=== PATIENT | female | born 1940 | race Caucasian/White ===

== ENCOUNTER → 2017-01-18 | Outpatient (CLI) | payer MEDICARE, BC ==
[~2017-01-18] MED LIST: BUPIVACAINE MPF 0.5% 30 ML VIAL. ONE; LIDOCAINE 1% PF 30 ML VIAL. ONE; methylPREDNISolone ACETATE 40 MG/ML VIAL. ONE
== END | disposition home or self-care (01) ==
LOC: SURG 08:34
PROVIDERS: ATTEND Anesthesiology Pain Medicine
DX: M47.812 Spondylosis without myelopathy or radiculopathy, cervical region (principal); M19.90 Unspecified osteoarthritis, unspecified site; E07.9 Disorder of thyroid, unspecified
CPT/HCPCS: 64490; 64491; J1030; J2001; J3490; 64492

== ENCOUNTER 2017-04-20 19:02 | Inpatient (IN) | payer MEDICARE, BC ==
[~2017-04-20] VITALS: Ht 165.1 cm; Wt 82.2 kg
[2017-04-20 20:32] VITALS: BP 147/72
[2017-04-20] MEDS ORDERED: LEVO175T5 PO (20:36)
--- NOTE | 2017-04-20 20:40 | NUR ---
Admit: Pt arrived A&Ox4 in bed, pt transferred herself into bed with standby assistance, VSS, assessment complete, pt denies any pain 0/10, home meds verified, belongings accounted for, pt's brother at bedside, call light within reach, no complaints
[2017-04-20] MEDS ORDERED: ESOM40CA PO (20:51)
[2017-04-20] MEDS ORDERED: AMLO1CAP8 PO (20:51)
[2017-04-20] MEDS ORDERED: ATOR40TA59 PO (20:57)
[2017-04-20] MEDS ORDERED: BUPR300T4 PO (20:57)
[2017-04-20] MEDS ORDERED: BUPR-192 PO (20:57)
[2017-04-20] MEDS ORDERED: CHLO25TA PO (20:57)
[2017-04-20] MEDS ORDERED: ASPI-612 PO (20:58)
[2017-04-20] MEDS ORDERED: EZET10TA18 PO (20:58)
[2017-04-20] MEDS ORDERED: DOCU-109 PO (21:04)
[2017-04-20] MEDS ORDERED: VORT20TA PO (21:04)
[2017-04-20] MEDS ORDERED: ALPR0.5T6 PO (21:04)
[2017-04-20] MEDS ORDERED: ZOLPIDEM 5 MG TABLET. PO PRN (22:15)
[2017-04-20] MEDS ORDERED: ACETAMINOPHEN 325 MG TABLET PO PRN (22:30)
[2017-04-20] MEDS ORDERED: ATORVASTATIN CALCIUM 20 MG TABLET PO SCH (22:30)
[2017-04-20] MEDS ORDERED: EZETIMIBE 10 MG TABLET PO SCH (22:30)
[2017-04-20] MEDS ORDERED: ASPIRIN ENTERIC COATED 81 MG TABLET.DR. PO SCH (22:30)
[2017-04-20] MEDS ORDERED: DOCUSATE SODIUM 100 MG CAPSULE PO SCH (22:30)
--- NOTE | 2017-04-20 22:30 | NUR ---
Pt is calm and cooperative, pt denies pain and has been asymptomatic, pt is primary caregiver to her brother Rishi who is Rishi VIVAR will stay bedside with pt tonight, pt stated that she takes one 81mg Aspirin daily at home but larger doses of aspirin causes pt to have problems with her throat- possibly swelling, Dr. Daly notifed, Pt given Eliquis for VTE, Pt's home meds verified and continued, pt's EKG shows left BBB EKG, pt stated that she has had Left BBB in the past, Pt requested and was given sandPatients Know Bestich boxes, pt advised to call for assistance before getting up, pt resting in bed at this time, call light within reach, will CTM this pt
[2017-04-20 22:46] LABS: CALCIUM 8.9 mg/dL (8.5-10.1); CREATININE 1.1 mg/dL (0.6-1.0); GFR 48.6
[2017-04-20] MEDS: ALPRAZolam 0.5 MG TABLET PO SCH (22:49)
[2017-04-20] MEDS: APIXABAN 2.5 MG TABLET PO SCH (22:49)
[2017-04-20 22:55] VITALS: BP 137/62
[2017-04-20 23:08] LABS: POTASSIUM 2.9 mmol/L (3.5-5.1)
[2017-04-21] MEDS ORDERED: POTASSIUM CHLORIDE 20 MEQ TABLET.ER. PO ONE (00:30)
[2017-04-21 06:00] VITALS: BP 131/70
[2017-04-21 06:45] LABS: BASO # 0.1 x10^3/uL (0.0-0.2); BASO % 1 % (0-3); EOS # 0.4 x10^3/uL (0.0-0.7); EOS % 4 % (0-3); HEMATOCRIT 40.2 % (36.0-47.0); HEMOGLOBIN 13.7 g/dL (12.0-15.5); LYMPH # 4.2 x10^3/uL (1.0-4.8); LYMPH % 47 % (24-48); MEAN CORPUSCULAR HEMOGLOBIN 28 pg (25-35); MEAN CORPUSCULAR HGB CONC 34 g/dL (31-37); MEAN CORPUSCULAR VOLUME 82 fL (79-100); MONO # 0.5 x10^3/uL (0.0-1.1); MONO % 6 % (0-9); NEUT # 3.7 x10^3uL (1.8-7.7); NEUT % 42 % (31-73); PLATELET COUNT 307 x10^3/uL (140-400); RED BLOOD COUNT 4.93 x10^6/uL (3.50-5.40); RED CELL DISTRIBUTION WIDTH 13.3 % (11.5-14.5); WHITE BLOOD COUNT 8.8 x10^3/uL (4.0-11.0)
[2017-04-21 06:54] LABS: CALCIUM 9.1 mg/dL (8.5-10.1); CREATININE 1.1 mg/dL (0.6-1.0); GFR 48.6; POTASSIUM 3.4 mmol/L (3.5-5.1)
[2017-04-21] MEDS ORDERED: LEVOTHYROXINE 175 MCG TABLET PO SCH (07:00)
[2017-04-21] MEDS ORDERED: buPROPion XL 300 MG TAB.ER.24H. PO SCH (08:00)
[2017-04-21] MEDS ORDERED: buPROPion XL 150 MG TAB.ER.24H PO SCH (08:00)
[2017-04-21] MEDS: POTASSIUM CHLORIDE 20 MEQ TABLET.ER. PO SCH ×2 (08:14→17:00)
[2017-04-21] MEDS: ALPRAZolam 0.5 MG TABLET PO SCH (08:17)
[2017-04-21] MEDS: APIXABAN 2.5 MG TABLET PO SCH (08:17)
--- NOTE | 2017-04-21 08:46 | NUR ---
G NOTE; DR GONZALEZ CONSULT CALLED TO [facility] AT [id number]
[2017-04-21] MEDS ORDERED: LISINOPRIL 10 MG TABLET PO SCH (09:00)
[2017-04-21] MEDS ORDERED: amLODIPine BESYLATE 5 MG TABLET PO SCH (09:00)
[2017-04-21] MEDS ORDERED: CHLORTHALIDONE 25 MG TABLET PO SCH (09:00)
[2017-04-21] MEDS ORDERED: PANTOPRAZOLE 40 MG TABLET. PO SCH (09:00)
--- NOTE | 2017-04-21 09:49 | PDOC2 ---
TIERNEY BELTRAN FASHION DIRECTOR PARTY PLAN SALES 04/21/17 0949: CONSULT Date of Admission DATE: 04/21/17 TIME: 09:48 Reason for Consult: chest pain History of Present Illness Ms Lehman is a 76 year old female who initially presented to [facility] with complaints of chest pain. It was determined that she should be admitted for evaluation but as there were no beds she was transferred here for admission. She reports occasional feelings of pressure in her midsternal to epigastric area which are relieved with belching. She does state that the symptoms are most often worse with exertion and improved if she lays down. Yesterday she experienced the discomfort all day without relief, with associated nausea, diarrhea and diaphoresis so presented for evaluation. She denies dyspnea or congestive symptoms. She denies palpitations, lightheadedness or syncope. She reports that the discomfort is currently ongoing but mild and is requesting a GI cocktail. Past Medical History hypertension, hyperlipidemia, GERD, mitral regurgitation, cardiomyopathy, Left bundle branch block, hypothyroidism, arthritis, anxiety, depression MPI 10/23/14 anterolateral apical breast artifact and hotspot artifact. Otherwise all segments viable and non ischemic. Global LV function within normal limits. Abnormal septal wall motion possibly consistent with LBBB. She reports a cardiac cath many years ago (mid ) that was normal. Past Surgical History: Cholecystectomy, Total hip replacement, Hysterectomy, Tonsillectomy, Other (dental implants) Family History CAD, hypertension Social History non smoker, no ETOH, no illicit drugs Current Medications Current Medications Alprazolam (Xanax) 0.5 mg BID PO Last administered on 04/21/17at 08:17; Start at 22:30 Aspirin (Aspirin Enteric Coated) 81 mg HS PO Last administered on 04/20/17at 22: 47; Start 04/20/17 at 22:30 Bupropion HCl (Wellbutrin Xl) 150 mg DAILYWBKFT PO Last administered on at 08:14; Start 04/21/17 at 08:00 Bupropion HCl (Wellbutrin Xl) 300 mg DAILYWBKFT PO Last administered on at 08:17; Start 04/21/17 at 08:00 Chlorthalidone (Thalitone) 25 mg DAILY PO Last administered on 04/21/17at 08:14 ; Start 04/21/17 at 09:00 Docusate Sodium (Colace) 100 mg HS PO Last administered on 04/20/17at 22:47; Start 04/20/17 at 22:30 EZETIMIBE (Zetia) 10 mg HS PO Last administered on 04/20/17at 22:50; Start 04/20 at 22:30 Levothyroxine Sodium (Synthroid) 175 mcg DAILY07 PO Last administered on at 05:42; Start 04/21/17 at 07:00 Amlodipine Besylate (Norvasc) 5 mg DAILY PO Last administered on 04/21/17at 08: 17; Start 04/21/17 at 09:00 Atorvastatin Calcium (Lipitor) 40 mg QHS PO Last administered on 04/20/17at 22: 49; Start 04/20/17 at 22:30 Pantoprazole Sodium (Protonix) 40 mg DAILY PO Last administered on 04/21/17at 08 :14; Start 04/21/17 at 09:00 Non-Formulary Medication 20 mg HS PO ; Start 04/21/17 at 21:00; Status UNV Apixaban (Eliquis) 2.5 mg BID PO Last administered on 04/21/17at 08:17; Start at 22:30 Zolpidem Tartrate (Ambien) 5 mg PRN QHS PRN PO INSOMNIA, MAY REPEAT IN 1HR; Start 04/20/17 at 22:15 Lisinopril (Prinivil) 10 mg DAILY PO Last administered on 04/21/17at 08:16; Start 04/21/17 at 09:00 Acetaminophen (Tylenol) 650 mg PRN Q6HRS PRN PO PAIN / TEMP Last administered on 04/20/17at 22:50; Start 04/20/17 at 22:30 Potassium Chloride (Klor-Con) 40 meq 1X ONCE PO Last administered on at 00:28; Start 04/21/17 at 00:30; Stop 04/21/17 at 00:31; Status DC Potassium Chloride (Klor-Con) 20 meq BIDWMEALS PO Last administered on at 08:14; Start 04/21/17 at 08:00 Active Scripts Active Reported Trintellix (Vortioxetine Hydrobromide) 20 Mg Tablet 20 Mg PO HS Alprazolam 0.5 Mg Tablet 1 Tab PO BID AM and HS, per pt Colace (Docusate Sodium) 100 Mg Capsule 100 Mg PO HS Aspirin Ec (Aspirin) 81 Mg Tablet.dr 81 Mg PO HS Zetia (Ezetimibe) 10 Mg Tablet 10 Mg PO HS Atorvastatin Calcium 40 Mg Tablet 40 Mg PO QHS Chlorthalidone 25 Mg Tablet 1 Tab PO DAILY Bupropion Xl (Bupropion Hcl) 300 Mg Tab.er.24h 1 Tab PO DAILYWBKFT Bupropion Xl (Bupropion Hcl) 150 Mg Tab.er.24h 1 Tab PO DAILYWBKFT Amlodipine-Benazepril 5-10 Mg (Amlodipine Besylate/Benazepril) 1 Each Capsule 1 Cap PO DAILY Nexium Capsule (Esomeprazole Magnesium) 40 Mg Capsule.dr 1 Cap PO DAILY Levothyroxine Sodium 175 Mcg Tablet 1 Tab PO DAILY Allergies: Coded Allergies: aspirin (Verified Allergy, Intermediate, 04/21/17) epinephrine (Verified Allergy, Intermediate, 04/21/17) Review of System as per HPI or negative General: Alert, Oriented X3, Cooperative, No acute distress HEENT: Atraumatic, EOMI Lungs: Clear to auscultation Heart: Regular rate, Normal S1, Normal S2, Other (no gallops, clicks or rubs) Abdomen: Normal bowel sounds, Soft, No tenderness Extremities: No cyanosis, Normal pulses Neuro: Normal speech, Strength at 5/5 X4 ext Psych/Mental Status: Mood NL VITALS Vital Signs Date Time Temp Pulse Resp B/P (MAP) Pulse Ox O2 Delivery O2 Flow Rate FiO2 04/21/17 08:17 65 131/70 04/21/17 08:00 Room Air 04/21/17 06:00 97.6 20 98 Labs Laboratory Tests Test 04/20/17 22:22 04/21/17 05:58 Sodium Level 143 mmol/L (136-145) 143 mmol/L (136-145) Potassium Level 2.9 mmol/L (3.5-5.1) 3.4 mmol/L (3.5-5.1) Chloride Level 104 mmol/L (98-107) 105 mmol/L (98-107) Carbon Dioxide Level 31 mmol/L (21-32) 31 mmol/L (21-32) Anion Gap 8 (6-14) 7 (6-14) Blood Urea Nitrogen 13 mg/dL (7-20) 12 mg/dL (7-20) Creatinine 1.1 mg/dL (0.6-1.0) 1.1 mg/dL (0.6-1.0) Estimated GFR (Cockcroft-Gault) 48.6 48.6 Glucose Level 212 mg/dL (70-99) 115 mg/dL (70-99) Calcium Level 8.9 mg/dL (8.5-10.1) 9.1 mg/dL (8.5-10.1) Troponin I Quantitative < 0.017 ng/mL (0-0.055) < 0.017 ng/mL (0-0.055) White Blood Count 8.8 x10^3/uL (4.0-11.0) Red Blood Count 4.93 x10^6/uL (3.50-5.40) Hemoglobin 13.7 g/dL (12.0-15.5) Hematocrit 40.2 % (36.0-47.0) Mean Corpuscular Volume 82 fL (79-100) Mean Corpuscular Hemoglobin 28 pg (25-35) Mean Corpuscular Hemoglobin Concent 34 g/dL (31-37) Red Cell Distribution Width 13.3 % (11.5-14.5) Platelet Count 307 x10^3/uL (140-400) Neutrophils (%) (Auto) 42 % (31-73) Lymphocytes (%) (Auto) 47 % (24-48) Monocytes (%) (Auto) 6 % (0-9) Eosinophils (%) (Auto) 4 % (0-3) Basophils (%) (Auto) 1 % (0-3) Neutrophils # (Auto) 3.7 x10^3uL (1.8-7.7) Lymphocytes # (Auto) 4.2 x10^3/uL (1.0-4.8) Monocytes # (Auto) 0.5 x10^3/uL (0.0-1.1) Eosinophils # (Auto) 0.4 x10^3/uL (0.0-0.7) Basophils # (Auto) 0.1 x10^3/uL (0.0-0.2) Images EKG - sinus rhythm 1st degree AVB, LBBB CXR (done at [facility])- no acute disease Assessment/Plan 1. chest pain, mixed features - OK ruled out. No acute EKG changes. Suspect GI in nature. Will give GI cocktail. Ambulate. If no reoccurrence would suggest outpatient follow up with primary wing commander and MPI. Will resume low dose aspirin as she takes this daily at home without any adverse effects. Avoid beta blockers at this time as she is receiving allergy shots. 2. MR - check echo 3. hypertension - resume home medications 4. hyperlipidemia - resume statin, check lipids 5. GERD - PPI Problems: LISSY FUNK MD 04/22/17 0901: CONSULT Allergies: Coded Allergies: aspirin (Verified Allergy, Intermediate, 04/21/17) epinephrine (Verified Allergy, Intermediate, 04/21/17) Assessment/Plan Patient seen and examined 04/21/17 (late entry). Agree with PRODUCE PRODUCTION TEAM MEMBER's assessment and plan. CP with atypical features and most probably GI etiology OK ruled out 2D echo showed normal LV function without any WMA Plan for outpatient MPI to rule out ischemia Thank you for your consultation Problems: TIERNEY BELTRAN APRN Apr 21, 2017 09:49 LISSY FUNK MD Apr 22, 2017 09:01
[2017-04-21 10:30] VITALS: BP 120/70
[2017-04-21] MEDS ORDERED: LIDO:MAALOX 1:1 20 ML SINGLE DOSE PO ONE (10:30)
--- NOTE | 2017-04-21 14:36 | CARD ---
MR#: [id number] Date of Study: 04/21/2017 Ordering Physician: TIERNEY BELTRAN, Referring Physician: ALAINA MASCORRO Tech: Faye Craig DEEPAK APPROVED REPORT EXAM: Two-dimensional and M-mode echocardiogram with Doppler and color Doppler. Other Information Quality : Good INDICATION Chest Pain 2D DIMENSIONS Left Atrium(2D)4.8 (1.6-4.0cm)IVSd1.1 (0.7-1.1cm) Aortic Root(2D)2.8 (2.0-3.7cm)LVDd3.9 (3.9-5.9cm) LVOT Diameter2.1 (1.8-2.4cm)PWd1.1 (0.7-1.1cm) LVDs2.9 (2.5-4.0cm)FS (%) 25.6 % SV32.7 mlLVEF(%)51.0 (>50%) Aortic Valve AoV Peak Jermaine.171.6cm/sAoV VTI35.7cm AO Peak GR.11.8mmHgLVOT Peak Jermaine.101.8cm/s LVOT VTI 22.30cmAO Mean GR.7mmHg HUONG (VMAX)1.65fs7CEI (VTI)2.07cm2 Mitral Valve MV E Olzipsme46.8cm/sMV DECEL FLZF136ci MV A Bcqnlvpk30.9cm/sE/A Ratio1.0 Tricuspid Valve TR P. Mftfxfcb747sj/sRAP OPXVANPV4odSv TR Peak Gr.47hhBmCJPA38qjKa Pulmonary Vein S1 Vnugadde32.4cm/sD2 Jkebjjdj23.9cm/s LEFT VENTRICLE The left ventricle is normal size. There is normal left ventricular wall thickness. Left ventricle sy stolic function is normal. The Ejection Fraction is 55%. RIGHT VENTRICLE The right ventricle is normal size. The right ventricular systolic function is normal. ATRIA The left atrium is mildly dilated. The right atrium size is normal. The interatrial septum is intact with no evidence for an atrial septal defect or patent foramen ovale as noted on 2-D or Doppler imagi ng. AORTIC VALVE The aortic valve is calcified but opens well. Doppler and Color Flow revealed no significant aortic r egurgitation. There is no significant aortic valvular stenosis. MITRAL VALVE The mitral valve is calcified but opens well. There is no evidence of mitral valve prolapse. There is no mitral valve stenosis. Doppler and Color-flow revealed trace mitral regurgitation. TRICUSPID VALVE The tricuspid valve is normal in structure and function. Doppler and Color Flow revealed trace tricus pid regurgitation. The PA pressure was estimated at 22 mmHg. There is no tricuspid valve stenosis. PULMONIC VALVE The pulmonary valve is normal in structure and function. Doppler and Color Flow revealed trace pulmon ic valvular regurgitation. There is no pulmonic valvular stenosis. GREAT VESSELS The aortic root is normal in size. The ascending aorta is normal in size. The IVC is normal in size a nd collapses >50% with inspiration. PERICARDIAL EFFUSION There is no evidence of significant pericardial effusion. Critical Notification Critical Value: No <Conclusion> Left ventricle systolic function is normal. The Ejection Fraction is 55%. Trace mitral regurgitation. Trace tricuspid regurgitation. The PA pressure was estimated at 22 mmHg. There is no evidence of significant pericardial effusion. Signed by : Hernandez Stuart, Electronically Approved : 04/21/2017 14:36:08
[2017-04-21 15:55] VITALS: BP 107/58
--- NOTE | 2017-04-21 18:15 | NUR ---
NSG NOTE; DISCHARGE VERBAL AND WRITTEN DISCHARGE INSTRUCTIONS GIVEN TO PT WITH VERBAL UNDERSTANDING. DISCHARGE TO HOME VIA AMB AT 1805 ACCOMP BY BROTHER
[2017-04-21] MEDS ORDERED: NON FORMULARY ITEM (Vortioxetine Hydrobromide (Trintellix) 20 MG) PO SCH (21:00)
[2017-04-22] MEDS ORDERED: ASPIRIN ENTERIC COATED 81 MG TABLET.DR. PO SCH (08:00)
--- NOTE | 2017-04-22 22:44 | HP ---
ADMIT DATE: 04/20/2017 HISTORY OF PRESENT ILLNESS: A 76-year-old female patient had chest pain throughout the day, primarily in her substernal area, radiating to her left shoulder. The patient denied any nausea, vomiting, or diaphoresis. She was initially seen at [facility] and apparently had abnormal changes on her EKG compared to previous EKGs. As a result of this, the patient was admitted for observation. They were on diversion, so they transferred her over here to [facility] where she was admitted for rule out [place] protocol. The patient was admitted for chest pain. When examined, her pain had been relieved with nitroglycerin. PAST MEDICAL HISTORY: Hypertension, hyperlipidemia, coronary artery disease, hypothyroidism, prurigo nodularis, depression, familial polyposis of gastric polyps, history of C. difficile. ALLERGIES: To FULL DOSE ASPIRIN. EPINEPHRINE CAUSES HEART TROUBLES. PAST SURGICAL HISTORY: Hysterectomy, dental implants, upper and lower, tonsillectomy as a child. She has had a heart catheterization in 2009. FAMILY HISTORY: Father of a heart attack. Mother, irregular heart rhythm and COPD. The patient takes excellent care of her brother who has problems of mental retardation. She is his primary caregiver. SOCIAL HISTORY: Denies smoking, alcohol or drug use. Lives at home. REVIEW OF SYSTEMS: Outside of the chest pain, denies headaches, visual changes, blurred vision, double vision; denies any melena, hematochezia, or hematemesis, and neurologically the patient was alert and oriented. PHYSICAL EXAMINATION: GENERAL: This is a pleasant white female, looking stated age, no apparent distress. VITAL SIGNS: Blood pressure 130/70, respiratory rate 20, pulse 65, afebrile. HEENT: The patient's head was atraumatic, normocephalic. Eyes: PERRLA without jaundice. The mouth and throat were normal. NECK: Supple without JVD, carotid bruits, or thyromegaly. LUNGS: The patient's lungs were diminished throughout, poor movement of air, but appropriate. CARDIOVASCULAR: Regular sinus rhythm, S1, S2, without murmur, rub, thrill, or extra heart sounds. ABDOMEN: Soft, nontender. No rebounding and no guarding. Positive bowel sounds, no hepatosplenomegaly was noted. EXTREMITIES: No clubbing, no cyanosis, no edema. NEUROLOGIC: The patient was alert and oriented x 3. Speech fluent, spontaneous, appropriate. Cranial nerves 2-12 are grossly intact. LABORATORY AND DIAGNOSTIC DATA: Some of the labs from [facility] were also reviewed; however, repeated here. Potassium was extremely low at 2.9, brought it up to 3.4, continue on potassium as an outpatient. The patient otherwise had a creatinine elevated at 1.1 and a GFR of 48. The patient's cholesterol was basically within normal range. The patient was admitted for rule out [place] protocol. Her cardiac enzymes were negative. The patient had an echocardiogram that was read out as normal by Dr. Stuart. Otherwise, the patient made good progress during the rest of her hospitalization. The patient had a previous history of abnormal septal wall motion consistent with left bundle-branch block. She has also had a previous MPI in 10/2014 followed by [facility] anterolateral apical breast artifact, hot spot artifact. Otherwise, the patient made good progress. DISPOSITION: She was discharged home. She will be followed by her slitting machine operator helper as soon as possible. ALAINA MASCORRO MD DR: SONAL/dave JOB#: [id number] / [id number]
== END 2017-04-21 18:05 | disposition home or self-care (01) | DRG 392 ==
LOC: 1 SOUTH 20:19
PROVIDERS: ADMIT Family Medicine; ATTEND Family Medicine
DX: K21.9 Gastro-esophageal reflux disease without esophagitis (principal); I34.0 Nonrheumatic mitral (valve) insufficiency; I44.7 Left bundle-branch block, unspecified; E03.9 Hypothyroidism, unspecified; E78.5 Hyperlipidemia, unspecified; I10 Essential (primary) hypertension; I25.10 Atherosclerotic heart disease of native coronary artery without angina pectoris; Z96.649 Presence of unspecified artificial hip joint; F32.9 Major depressive disorder, single episode, unspecified; F41.9 Anxiety disorder, unspecified; M19.90 Unspecified osteoarthritis, unspecified site; Z88.8 Allergy status to other drugs, medicaments and biological substances; Z90.49 Acquired absence of other specified parts of digestive tract; Z90.710 Acquired absence of both cervix and uterus; Z81.0 Family history of intellectual disabilities; Z82.49 Family history of ischemic heart disease and other diseases of the circulatory system; Z82.5 Family history of asthma and other chronic lower respiratory diseases
CPT/HCPCS: 36415; 80048; 80061; 84484; 85025; 93306

== ENCOUNTER 2017-04-30 00:02 | Inpatient (IN) | payer MEDICARE, BC ==
[~2017-04-30] VITALS: Ht 165.1 cm; Wt 80.3 kg
[~2017-04-30 00:02] MED LIST changes: +ALPR0.5T6 PO; +AMLO1CAP8 PO; +ASPI-612 PO; +ATOR40TA59 PO; -BUPIVACAINE MPF 0.5% 30 ML VIAL. ONE; +BUPR-192 PO; +BUPR300T4 PO; +CHLO25TA PO; +DOCU-109 PO; +ESOM40CA PO; +EZET10TA18 PO; +LEVO175T5 PO; -LIDOCAINE 1% PF 30 ML VIAL. ONE; +VORT20TA PO; -methylPREDNISolone ACETATE 40 MG/ML VIAL. ONE
[2017-04-30] MEDS ORDERED: ASPIRIN 81 MG TAB.CHEW ONE (00:11)
--- NOTE | 2017-04-30 00:11 | ED.ADGEN ---
Past History Past Medical History: Anxiety, Arthritis, CAD, CHF Adult General Chief Complaint Chief Complaint " .. I ve had chest pressure the past hour that woke me up.. It like when I was in here on 04/20..." HPI HPI Patient is a 76 year old female who presents with above hx and complaints central chest discomfort/pressure. Pain woke her up at approximately 1 AM. Discomfort is been constant but nonradiating. Patient states her previous episode that GI cocktail relieved her symptoms. Patient has a history of GERD. Patient has history of coronary artery disease, hypertension, elevated cholesterol. Patient normally follows with Dr. Daly. Patient states she's been compliant for meds. Review of Systems Review of Systems Constitutional: Denies fever or chills [] Eyes: Denies change in visual acuity, redness, or eye pain [] HENT: Denies nasal congestion or sore throat [] Respiratory: Denies cough or shortness of breath [] Cardiovascular: No additional information not addressed in HPI [] GI: Denies abdominal pain, nausea, vomiting, bloody stools or diarrhea [] : Denies dysuria or hematuria [] Musculoskeletal: Denies back pain or joint pain [] Integument: Denies rash or skin lesions [] Neurologic: Denies headache, focal weakness or sensory changes [] Endocrine: Denies polyuria or polydipsia [] All other systems were reviewed and found to be within normal limits, except as documented in this note. Family History Family History Noncontributory Current Medications Current Medications Current Medications Medications (Trade) Dose Ordered Sig/Arleth Start Time Stop Time Status Last Admin Dose Admin Aspirin (Children'S Aspirin) 81 mg 1X ONCE 04/30/17 01:00 04/30/17 01:01 DC 04/30/17 01:12 81 MG Famotidine (Pepcid Vial) 20 mg 1X ONCE 04/30/17 01:00 04/30/17 01:01 DC 04/30/17 01:05 20 MG Lactated Ringer's 1,000 ml @ 100 mls/hr Q10H 04/30/17 01:00 04/30/17 01:09 DC 04/30/17 01:05 100 MLS/HR Magnesium Hydroxide (Milk Of Magnesia) 2,400 mg 1X ONCE 04/30/17 01:00 04/30/17 01:01 DC 04/30/17 01:05 2,400 MG Potassium Chloride (KCl Oral Soln) 40 meq 1X ONCE 04/30/17 02:00 04/30/17 02:01 DC 04/30/17 01:49 40 MEQ Sucralfate (Carafate) 1 gm 1X ONCE 04/30/17 01:00 04/30/17 01:01 DC 04/30/17 01:05 1 GM Allergies Allergies Allergies Coded Allergies Type Severity Reaction Last Updated Verified aspirin Allergy Intermediate 04/21/17 Yes epinephrine Allergy Intermediate 04/21/17 Yes Physical Exam Physical Exam Constitutional: Moderately acute distress, non-toxic appearance. [] HENT: Normocephalic, atraumatic, bilateral external ears normal, oropharynx moist, no oral exudates, nose normal. [] Eyes: PERRLA, EOMI, conjunctiva normal, no discharge. [] Neck: Normal range of motion, no tenderness, supple, no stridor. [] Cardiovascular:Heart rate regular rhythm, no murmur, PMI to the left Lungs & Thorax: Bilateral breath sounds clear to auscultation [] Abdomen: Bowel sounds normal, soft, no tenderness, no masses, no pulsatile masses. Obese. Skin: Warm, dry, no erythema, no rash. [] Back: No tenderness, no CVA tenderness. [] Extremities: No tenderness, no cyanosis, no clubbing, ROM intact, ankle edema. [ ] Neurologic: Alert and oriented X 3, normal motor function, normal sensory function, no focal deficits noted. [] Psychologic: Affect anxious, judgement normal, mood normal. [] Current Patient Data Vital Signs Vital Signs Date Time Temp Pulse Resp B/P (MAP) Pulse Ox O2 Delivery O2 Flow Rate FiO2 04/30/17 01:46 68 13 118/70 (86) 96 Room Air 04/30/17 00:13 97.9 Lab Results Laboratory Tests Test 04/30/17 00:35 White Blood Count 11.3 x10^3/uL (4.0-11.0) H Red Blood Count 4.63 x10^6/uL (3.50-5.40) Hemoglobin 12.8 g/dL (12.0-15.5) Hematocrit 38.1 % (36.0-47.0) Mean Corpuscular Volume 82 fL (79-100) Mean Corpuscular Hemoglobin 28 pg (25-35) Mean Corpuscular Hemoglobin Concent 34 g/dL (31-37) Red Cell Distribution Width 13.3 % (11.5-14.5) Platelet Count 334 x10^3/uL (140-400) Neutrophils (%) (Auto) 57 % (31-73) Lymphocytes (%) (Auto) 33 % (24-48) Monocytes (%) (Auto) 7 % (0-9) Eosinophils (%) (Auto) 2 % (0-3) Basophils (%) (Auto) 1 % (0-3) Neutrophils # (Auto) 6.5 x10^3uL (1.8-7.7) Lymphocytes # (Auto) 3.7 x10^3/uL (1.0-4.8) Monocytes # (Auto) 0.8 x10^3/uL (0.0-1.1) Eosinophils # (Auto) 0.2 x10^3/uL (0.0-0.7) Basophils # (Auto) 0.1 x10^3/uL (0.0-0.2) Prothrombin Time 10.0 SEC (9.4-11.4) Prothrombin Time INR 1.0 (0.9-1.1) PTT 24 SEC (23-33) D-Dimer (Meg) 0.44 mg/L (0.00-0.50) Sodium Level 141 mmol/L (136-145) Potassium Level 2.5 mmol/L (3.5-5.1) *L Chloride Level 104 mmol/L (98-107) Carbon Dioxide Level 27 mmol/L (21-32) Anion Gap 10 (6-14) Blood Urea Nitrogen 21 mg/dL (7-20) H Creatinine 1.2 mg/dL (0.6-1.0) H Estimated GFR (Cockcroft-Gault) 43.9 Glucose Level 129 mg/dL (70-99) H Calcium Level 8.5 mg/dL (8.5-10.1) Magnesium Level 1.6 mg/dL (1.8-2.4) L Total Bilirubin 0.5 mg/dL (0.2-1.0) Direct Bilirubin 0.2 mg/dL (0.0-0.2) Aspartate Amino Transferase (AST) 20 U/L (15-37) Alanine Aminotransferase (ALT) 25 U/L (14-59) Alkaline Phosphatase 195 U/L (46-116) H Creatine Kinase 76 U/L (26-192) Creatine Kinase MB (Mass) 1.8 ng/mL (0.0-3.6) Creatine Kinase MB Relative Index 2.4 % (0-4) Troponin I Quantitative < 0.017 ng/mL (0-0.055) YO-Gbz-A-Type Natriuretic Peptide 30 pg/mL (0-124) Total Protein 6.3 g/dL (6.4-8.2) L Albumin 3.2 g/dL (3.4-5.0) L Amylase Level 35 U/L (25-115) Lipase 124 U/L (73-393) EKG EKG I interpretation of EKG shows a sinus rhythm with intraventricular block. Similar to previous EKG on file.[] Radiology/Procedures Radiology/Procedures My interpretation of chest x-ray shows no acute cardiopulmonary findings some prior x-ray on file.[] Course & Med Decision Making Course & Med Decision Making Pertinent Labs and Imaging studies reviewed. (See chart for details) Admit to Dr. Daly- [place], with cardiology consult per Dr. Daly and cornelio sutton. Pt. presentation, testing and treatment plan discussed with Dr. Daly. [] Final Impression Final Impression 1. Chest Pain 2. Hypokalemia 3. Leukocytosis 4. HTN 5. Elevated Creat. 6. DM 7. GERD Problems: Dragon Disclaimer Dragon Disclaimer This electronic medical record was generated, in whole or in part, using a voice recognition dictation system. JOHN PAUL NATH MD Apr 30, 2017 00:11
[2017-04-30 00:57] LABS: BASO # 0.1 x10^3/uL (0.0-0.2); BASO % 1 % (0-3); EOS # 0.2 x10^3/uL (0.0-0.7); EOS % 2 % (0-3); HEMATOCRIT 38.1 % (36.0-47.0); HEMOGLOBIN 12.8 g/dL (12.0-15.5); LYMPH # 3.7 x10^3/uL (1.0-4.8); LYMPH % 33 % (24-48); MEAN CORPUSCULAR HEMOGLOBIN 28 pg (25-35); MEAN CORPUSCULAR HGB CONC 34 g/dL (31-37); MEAN CORPUSCULAR VOLUME 82 fL (79-100); MONO # 0.8 x10^3/uL (0.0-1.1); MONO % 7 % (0-9); NEUT # 6.5 x10^3uL (1.8-7.7); NEUT % 57 % (31-73); PLATELET COUNT 334 x10^3/uL (140-400); RED BLOOD COUNT 4.63 x10^6/uL (3.50-5.40); RED CELL DISTRIBUTION WIDTH 13.3 % (11.5-14.5); WHITE BLOOD COUNT 11.3 x10^3/uL (4.0-11.0)
[2017-04-30] MEDS ORDERED: FAMOTIDINE 20 MG/2 ML VIAL IVP ONE (01:00)
[2017-04-30] MEDS ORDERED: SUCRALFATE 1 GM TABLET. PO ONE (01:00)
[2017-04-30] MEDS ORDERED: IV RINGERS SOLUTION,LACTATED 1,000 ML IV SCH (01:00)
[2017-04-30] MEDS ORDERED: ASPIRIN 81 MG TAB.CHEW PO ONE (01:00)
[2017-04-30] MEDS ORDERED: MAGNESIUM HYDROXIDE 2,400 MG/30 ML ORAL.SUSP. PO ONE (01:00)
[2017-04-30 01:20] LABS: ALBUMIN 3.2 g/dL (3.4-5.0); CALCIUM 8.5 mg/dL (8.5-10.1); CREATININE 1.2 mg/dL (0.6-1.0); DIRECT BILIRUBIN 0.2 mg/dL (0.0-0.2); GFR 43.9; MAGNESIUM 1.6 mg/dL (1.8-2.4); TOTAL BILIRUBIN 0.5 mg/dL (0.2-1.0); TOTAL PROTEIN 6.3 g/dL (6.4-8.2)
[2017-04-30 01:23] LABS: POTASSIUM 2.5 mmol/L (3.5-5.1)
[2017-04-30] MEDS ORDERED: POTASSIUM CHLORIDE 20 MEQ/15 ML ORAL LIQUID. PO ONE (02:00)
[2017-04-30] MEDS ORDERED: ONDANSETRON PF 4 MG/2 ML VIAL. IV PRN (02:30)
[2017-04-30] MEDS ORDERED: MORPHINE SULFATE 2 MG/ML DISP.SYRIN. IV PRN (02:30)
[2017-04-30] MEDS ORDERED: IV NORMAL SALINE 1,000ML 1,000 ML IV SCH (02:45)
[2017-04-30] MEDS ORDERED: POTASSIUM CL 40MEQ D5-0.45NACL 1,000 ML IV ONE (03:00)
--- NOTE | 2017-04-30 03:02 | EKG ---
[address] [address] Test Date: 2017-04-30 Test Time: 00:18:14 Pat Name: NAOMI VASQUEZ Department: Room: 113 A Gender: F Anesthesiologists' Assistant: JOSE : 1940 Requested By: JOHN PAUL NATH Order Number: [id number] Reading MD: Fortunato De Leon MD Measurements Intervals [place] Rate: 78 P: 180 VA: 202 QRS: 26 QRSD: 136 T: 151 QT: 442 QTc: 508 Interpretive Statements SINUS RHYTHM LBBB Electronically Signed On 05-07-2017 23:58:07 SENIOR GL ACCOUNTANT by Fortunato De Leon MD
[2017-04-30 03:17] VITALS: BP 145/79
[2017-04-30 06:01] VITALS: BP 145/76
--- NOTE | 2017-04-30 06:16 | EKG ---
[address] [address] Test Date: 2017-04-30 Test Time: 06:13:43 Pat Name: NAOMI VASQUEZ Department: Room: 113 A Gender: F Optical Brightener Maker Helper: VERN : 1940 Requested By: JOHN PAUL NATH Order Number: [id number] Reading MD: Fortunato De Leon MD Measurements Intervals [place] Rate: 83 P: 54 [place]: 216 QRS: 9 QRSD: 130 T: 141 QT: 426 QTc: 507 Interpretive Statements SINUS RHYTHM 1ST DEGREE AVB LBBB Electronically Signed On 05-08-2017 0:03:21 PASTE MIXER by Fortunato De Leon MD
[2017-04-30] MEDS ORDERED: LEVOTHYROXINE 175 MCG TABLET PO SCH (07:00)
[2017-04-30] MEDS ORDERED: PANTOPRAZOLE 40 MG TABLET. PO SCH (07:30)
[2017-04-30] MEDS ORDERED: DOCUSATE SODIUM 100 MG CAPSULE PO PRN (07:30)
[2017-04-30] MEDS ORDERED: buPROPion XL 300 MG TAB.ER.24H. PO SCH (08:00)
[2017-04-30] MEDS ORDERED: buPROPion XL 150 MG TAB.ER.24H PO SCH (08:00)
--- NOTE | 2017-04-30 08:09 | RAD ---
EXAM: Chest, single view. HISTORY: Chest pain. COMPARISON: None. FINDINGS: A frontal view of the chest is obtained. There is no infiltrate, effusion or pneumothorax. The heart is normal in size. IMPRESSION: No acute pulmonary finding.
[2017-04-30 09:00] LABS: BILIRUBIN,URINE NEG (NEG); CLARITY,URINE CLEAR; COLOR,URINE YELLOW; GLUCOSE,URINE NEG (NEG); NITRITE,URINE NEG (NEG); RBC,URINE 0 /HPF (0-2); UROBILINOGEN,URINE 0.2 mg/dL (0.2 mg/dL); WBC,URINE RARE /HPF (0-4)
[2017-04-30] MEDS ORDERED: FAMOTIDINE 20 MG TABLET PO SCH (09:00)
[2017-04-30] MEDS ORDERED: ALPRAZolam 0.5 MG TABLET PO SCH (09:00)
[2017-04-30] MEDS ORDERED: amLODIPine BESYLATE 5 MG TABLET PO SCH (09:00)
[2017-04-30] MEDS ORDERED: POTASSIUM CHLORIDE 20 MEQ/15 ML ORAL LIQUID. PO SCH (09:00)
[2017-04-30] MEDS ORDERED: LISINOPRIL 10 MG TABLET PO SCH (09:00)
[2017-04-30] MEDS ORDERED: NITROGLYCERIN OINT 1 GM PACKET. TP SCH (09:00)
[2017-04-30] MEDS ORDERED: CHLORTHALIDONE 25 MG TABLET PO SCH (09:00)
[2017-04-30 09:01] LABS: BACTERIA,URINE FEW /HPF (0-FEW); HYALINE CASTS, URINE OCC /HPF; SQUAMOUS EPITHELIAL CELL,UR OCC /LPF; YEAST,URINE PRESENT /HPF
[2017-04-30] MEDS ORDERED: LISI10TA2 PO (10:48)
[2017-04-30] MEDS ORDERED: POTA25TA4 PO (10:48)
[2017-04-30] MEDS ORDERED: NITR0.4T22 SL (10:48)
[2017-04-30] MEDS ORDERED: FAMO20TA5 PO (10:48)
[2017-04-30 11:01] VITALS: BP 106/63
[2017-04-30] MEDS ORDERED: ATORVASTATIN CALCIUM 20 MG TABLET PO SCH (21:00)
[2017-04-30] MEDS ORDERED: NON FORMULARY ITEM (Vortioxetine Hydrobromide (Trintellix) 20 MG) PO SCH (21:00)
[2017-04-30] MEDS ORDERED: EZETIMIBE 10 MG TABLET PO SCH (21:00)
[2017-04-30] MEDS ORDERED: ASPIRIN ENTERIC COATED 81 MG TABLET.DR. PO SCH (21:00)
--- NOTE | 2017-05-03 12:55 | HP ---
ADMIT DATE: 04/30/2017 HISTORY OF PRESENT ILLNESS: This 76-year-old female came in through the Emergency Room with substernal chest pain. The patient noted she has had this with activity and has a history of coronary artery disease. The patient said it started early in the morning, lasted several hours, and despite the use of GI cocktail, there was no real relief. She came in through the Emergency Room. She had risk factors of coronary artery disease, hypertension, and elevated cholesterol family history. She was admitted for observation and further rule out MD protocol. PAST MEDICAL HISTORY: Includes all the above including anxiety, arthritis, coronary artery disease and congestive heart failure. FAMILY HISTORY: Positive for coronary artery disease. CURRENT MEDICATIONS: Included Pepcid 20 mg a day. She allegedly has allergy to ASPIRIN and to EPINEPHRINE. Also Xanax 0.5 b.i.d., Norvasc and benazepril 5/10, aspirin 81, Lipitor 40, Bupron XL 300 mg with breakfast and 150 in the morning, chlorthalidone 25, Colace 100 mg a day, Nexium, Zetia 10, 20 mg of Pepcid twice a day, levothyroxine 175, lisinopril 10, nitroglycerin 0.4 sublingual, and potassium bicarbonate as well as Trintellix 20 mg at bedtime. ALLERGIES: ASPIRIN and EPINEPHRINE as stated. SOCIAL HISTORY: No smoking, alcohol, or drug use. Lives at home and takes care of her brother who has some mental issues REVIEW OF SYSTEMS: Outside of the chest pain, denies shortness of breath. Denies headaches, visual changes, blurred vision, or double vision. Denies burning in her throat. Denies any melena, hematochezia, or hematemesis. Neurologically stable. PHYSICAL EXAMINATION: GENERAL: This is a white female in moderate amount of distress concerning with her chest pain. VITAL SIGNS: The patient's blood pressure 140/70, respiratory rate 14, pulse 80, afebrile, oxygen saturation 96%. HEENT: The patient's head was atraumatic, normocephalic. Eyes: PERRLA without jaundice. Mouth and throat were normal. NECK: Supple, without JVD or carotid bruits. No thyromegaly. LUNGS: Diminished throughout, poor movement of air. CARDIOVASCULAR: Regular sinus rhythm, S1-S2, without murmur, rub, thrill, or extra heart sounds. ABDOMEN: Soft and nontender. No rebound or guarding. Positive bowel sounds. No hepatosplenomegaly was noted. EXTREMITIES: No clubbing, cyanosis, or edema. NEUROLOGIC: The patient was alert and oriented x 3. The patient will be admitted for rule out MD protocol and make further evaluation on her cardiac enzymes and make further adjustment as indicated. ALAINA MASCORRO MD DR: SONAL/dave JOB#: [id number] / [id number]
== END 2017-04-30 11:20 | disposition home or self-care (01) | DRG 313 ==
LOC: ER 00:02 → 1 SOUTH 02:00
PROVIDERS: ADMIT Family Medicine; ATTEND Family Medicine
DX: R07.89 Other chest pain (principal); I25.10 Atherosclerotic heart disease of native coronary artery without angina pectoris; E11.9 Type 2 diabetes mellitus without complications; I11.0 Hypertensive heart disease with heart failure; I50.9 Heart failure, unspecified; D72.829 Elevated white blood cell count, unspecified; E87.6 Hypokalemia; F41.9 Anxiety disorder, unspecified; K21.9 Gastro-esophageal reflux disease without esophagitis; M19.90 Unspecified osteoarthritis, unspecified site; Z88.8 Allergy status to other drugs, medicaments and biological substances; Z82.49 Family history of ischemic heart disease and other diseases of the circulatory system
CPT/HCPCS: 36415; 71045; 80048; 80076; 81001; 82150; 82553; 83690; 83735; 83880; 84132; 84443; 84484; 85025; 85379; 85610; 85730; 93005; J7042; J7120; S0028; J7030

== ENCOUNTER 2020-12-07 06:35 | Inpatient (IN) | payer MEDICARE, BC ==
[~2020-12-07] VITALS: Ht 165.1 cm; Wt 72.8 kg
[~2020-12-07 06:35] MED LIST changes: -AMLO1CAP8 PO; +AMLO1CAP9 PO; -ASPI-612 PO; +ASPI-889 PO; -BUPR-192 PO; +BUPR150T21 PO; -BUPR300T4 PO; +BUPR300T92 PO; -CHLO25TA PO; +CHLO25TA9 PO; -EZET10TA18 PO; +EZET10TA20 PO; +FAMO20TA5 PO; +LISI10TA16 PO; +NITR0.4T22 SL; +POTA25TA4 PO
--- NOTE | 2020-12-07 06:46 | PHYS DOC ---
Past History Past Medical History: Anxiety, Arthritis, CAD, CHF Past Surgical History: Hip Replacement, Hysterectomy, Tonsillectomy, Other Alcohol Use: None Drug Use: None Adult General Chief Complaint Chief Complaint: SHORTNESS OF BREATH [facility] HPI Patient is a pleasant 80-year-old female presenting for shortness of breath. She reports she feels like she cannot take a full breath. This is been going on for less than a week, she has known history of CAD without any significant intervention with recent heart catheterization. She is well covered by outpatient specialists and PCP. Was recently last seen by a primary care physician and has been on albuterol, LAMA and ICS maintenance daily inhaler, and was started on a prednisone taper at that time. This is because her history of allergies for which she received allergy shots in addition to mild COPD. She reports the inhalers and prednisone have not helped her. She denies any significant wheezes, no ripping or tearing pain or pain in general, just the inability to take a full deep breath. She is fully vaccinated against COVID-19 but was recently tested due to close contact from distant family members. She has no history of blood clots, she is on a baby aspirin daily but no other blood thinners. Denies any alcohol, tobacco or other recreational drug use. No recent long distance travel, hemoptysis, unilateral leg swelling etc. Review of Systems Review of Systems Fourteen body systems of review of systems have been reviewed. See HPI for pertinent positives and negative responses, other ortega all other systems are negative, non-pertinent or non-contributory Allergies Allergies Allergies Coded Allergies Type Severity Reaction Last Updated Verified aspirin Allergy Intermediate 12/07/20 Yes epinephrine Allergy Intermediate 12/07/20 Yes Physical Exam Physical Exam Constitutional: Well developed, well nourished, no acute distress, non-toxic appearance. Age-appropriate and in no acute distress HENT: Normocephalic, atraumatic, bilateral external ears normal, oropharynx moist, no oral exudates, nose normal. Eyes: PERRLA, EOMI, conjunctiva normal, no discharge. Neck: Normal range of motion, no tenderness, supple, no stridor. Cardiovascular: Heart rate regular, sinus rhythm Lungs & Thorax: No respiratory distress, patent airway tolerating secretions without phonation changes, no accessory muscle use or retractions noted, patient has mild crackles in bilateral bases otherwise clear to auscultation bilaterally Abdomen: Bowel sounds normal, soft, no tenderness, no masses, no pulsatile masses. Nonsurgical abdomen, no peritoneal signs Skin: Warm, dry, no erythema, no rash. Back: No tenderness, no CVA tenderness. Extremities: No tenderness, no cyanosis, no clubbing, ROM intact, no edema. Neurologic: Alert and oriented X 3, grossly normal motor & sensory function, no focal deficits noted. Psychologic: Normal affect, anxious mood Current Patient Data Vital Signs Vital Signs Date Time Temp Pulse Resp B/P (MAP) Pulse Ox O2 Delivery O2 Flow Rate FiO2 12/07/20 06:43 97.8 80 22 160/81 96 Room Air Vital Signs Date Time Temp Pulse Resp B/P (MAP) Pulse Ox O2 Delivery O2 Flow Rate FiO2 12/07/20 07:42 73 15 169/91 (117) 96 Room Air 12/07/20 06:43 97.8 Lab Results Laboratory Tests Test 12/07/20 06:50 12/07/20 07:40 White Blood Count 13.0 x10^3/uL Red Blood Count 4.14 x10^6/uL Hemoglobin 10.9 g/dL Hematocrit 34.8 % Mean Corpuscular Volume 84 fL Mean Corpuscular Hemoglobin 26 pg Mean Corpuscular Hemoglobin Concent 31 g/dL Red Cell Distribution Width 14.7 % Platelet Count 617 x10^3/uL Neutrophils (%) (Auto) 54 % Lymphocytes (%) (Auto) 38 % Monocytes (%) (Auto) 6 % Eosinophils (%) (Auto) 1 % Basophils (%) (Auto) 1 % Neutrophils # (Auto) 7.0 x10^3uL Lymphocytes # (Auto) 5.0 x10^3/uL Monocytes # (Auto) 0.8 x10^3/uL Eosinophils # (Auto) 0.1 x10^3/uL Basophils # (Auto) 0.1 x10^3/uL Sodium Level 145 mmol/L Potassium Level 4.1 mmol/L Chloride Level 107 mmol/L Carbon Dioxide Level 32 mmol/L Anion Gap 6 Blood Urea Nitrogen 23 mg/dL Creatinine 1.1 mg/dL Estimated GFR (Cockcroft-Gault) 48.0 Glucose Level 95 mg/dL Calcium Level 9.1 mg/dL Troponin I Quantitative < 0.017 ng/mL [id number] Natriuretic Peptide 2985 pg/mL SARS-CoV-2 Antigen (Rapid) Negative Current Medications Medications (Trade) Dose Ordered Sig/Arleth Route PRN Reason Start Time Stop Time Status Last Admin Dose Admin Aspirin (Aspirin Chewable) 162 mg 1X ONCE PO 12/07/20 07:30 12/07/20 07:31 DC 12/07/20 07:37 Iohexol (Omnipaque 350 Mg/ml) 100 ml 1X ONCE IV 12/07/20 07:30 12/07/20 07:38 DC 12/07/20 08:05 EKG EKG EKG ordered and interpreted by myself at 0725 hrs. as sinus rhythm at 75 bpm, prolonged QRS at 160 and QTC at 470 otherwise unremarkable intervals, no axis deviation, no acute ischemic findings, no STEMI Radiology/Procedures Radiology/Procedures EXAM: CT chest with contrast - pulmonary embolus protocol CLINICAL HISTORY: Reason: SHORTNESS OF BREATH / Spl. Instructions: / History: . COMPARISON: None. TECHNIQUE: CT of the chest following the administration of intravenous contrast during the pulmonary arterial phase. Axial, coronal and sagittal reformatted images were generated including MIP images. ---PQRS compliance statement - One or more of the following individualized dose reduction techniques were utilized for this study: 1. Automated exposure control 2. Adjustment of the mA and/or kV according to patient size 3. Use of iterative reconstruction technique--- FINDINGS: CHEST: Diagnostic quality: Adequate contrast bolus although distal evaluation limited by motion artifact and parenchymal opacities. Pulmonary emboli: None seen Right heart strain: None Pulmonary arteries: Normal in caliber. Heart is borderline enlarged. No pericardial effusion. Small bilateral pleural effusions. No pneumothorax. No mediastinal or hilar lymphadenopathy by size criteria although prominent hilar lymph nodes are likely reactive. No axillary lymphadenopathy. Bilateral groundglass and solid parenchymal airspace opacities in a perihilar and lower lung distribution. No definite suspicious lung nodule or mass although may be obscured by the parenchymal opacities. Visualized Upper abdomen: Cholecystectomy clips are seen. Bones: Degenerative changes of the spine. No aggressive osseous lesion. IMPRESSION: 1. No definite pulmonary embolus is seen although distal evaluation limited by motion artifact and diffuse parenchymal opacities. 2. Diffuse parenchymal opacities bilaterally may represent multifocal consolidative process such as pneumonia, including atypical/viral pneumonia. Given the borderline cardiomegaly and pleural effusions, pulmonary edema could also have this appearance. Imaging follow-up to resolution is recommended to exclude underlying mass. Electronically signed by: Jorge Das MD (12/07/2020 8:27 AM) [id number] Heart Score C/O Chest Pain: No HEART Score for Chest Pain: HEART Score for Chest Pain Response (Comments) Value Age > 65 2 Risk Factors >3 Risk Factors or Hx CAD 2 Troponin < Normal Limit 0 Total 4 Risk Factors: Risk Factors: DM, Current or recent (<one month) smoker, HTN, HLP, family history of CAD, obesity. Risk Scores: Risk Factors: DM, Current or recent (<one month) smoker, HTN, HLP, family history of CAD, obesity. Course & Med Decision Making Course & Med Decision Making Airway patent, patient exhibiting increased work of breathing, IV and vitals obtained HPI, physical examination and comprehensive ER work-up obtained and nonconcerning for any emergent or surgical issues With that said, patient was hypoxic during ER visit that did not improve with positional changes, she required supplemental oxygen and continues to do so. Condition likely due to multifocal pneumonia. She is unfit for discharge home I contacted patient's primary care physician who also serves as her hospitalist, he agreed need for admission and accepted patient under his care I updated patient on proposed plan of care that included hospital admission and she was amenable. All questions and concerns addressed prior to admission Critical Care Time This patient required critical care. Due to the fact that the patient required a significant amount of one on one physician - patient contact time, ordering and review of studies, arranging urgent treatment with development of a management plan, evaluation of patients response to treatment with frequent reassessments, and discussions with other providers this patient required 40 minutes of critical care time. Critical care time was indicated due to the inherent instability and/or potential for instability in this patient. The critical care time that is allocated to this patient is above and beyond any time spent on any other billable procedures performed on this patient. Dragon Disclaimer Dragon Disclaimer This electronic medical record was generated, in whole or in part, using a voice recognition dictation system. Departure Departure: Impression: Primary Impression: Multifocal pneumonia Additional Impression: Acute respiratory failure with hypoxia Disposition: ADMITTED INPATIENT Admitting Physician: Alaina Mascorro Condition: STABLE Referrals: ALAINA MASCORRO MD (PCP) Problem Qualifiers MELISSALIONEL DO Dec 07, 2020 06:46
[2020-12-07 07:02] LABS: BASO # 0.1 x10^3/uL (0.0-0.2); BASO % 1 % (0-3); EOS # 0.1 x10^3/uL (0.0-0.7); EOS % 1 % (0-3); HEMATOCRIT 34.8 % (36.0-47.0); HEMOGLOBIN 10.9 g/dL (12.0-15.5); LYMPH % 38 % (24-48); MEAN CORPUSCULAR HEMOGLOBIN 26 pg (25-35); MEAN CORPUSCULAR HGB CONC 31 g/dL (31-37); MEAN CORPUSCULAR VOLUME 84 fL (79-100); MONO # 0.8 x10^3/uL (0.0-1.1); MONO % 6 % (0-9); NEUT % 54 % (31-73); PLATELET COUNT 617 x10^3/uL (140-400); RED BLOOD COUNT 4.14 x10^6/uL (3.50-5.40); RED CELL DISTRIBUTION WIDTH 14.7 % (11.5-14.5)
[2020-12-07 07:11] LABS: CALCIUM 9.1 mg/dL (8.5-10.1); CREATININE 1.1 mg/dL (0.6-1.0); POTASSIUM 4.1 mmol/L (3.5-5.1)
[2020-12-07] MEDS ORDERED: IOHEXOL 350 MG/ML 100 ML VIAL. IV ONE (07:30)
[2020-12-07] MEDS ORDERED: ASPIRIN CHEWABLE 81 MG TABLET. PO ONE (07:30)
--- NOTE | 2020-12-07 08:30 | RAD ---
EXAM: CT chest with contrast - pulmonary embolus protocol CLINICAL HISTORY: Reason: SHORTNESS OF BREATH / Spl. Instructions: / History: . COMPARISON: None. TECHNIQUE: CT of the chest following the administration of intravenous contrast during the pulmonary arterial phase. Axial, coronal and sagittal reformatted images were generated including MIP images. ---PQRS compliance statement - One or more of the following individualized dose reduction techniques were utilized for this study: 1. Automated exposure control 2. Adjustment of the mA and/or kV according to patient size 3. Use of iterative reconstruction technique--- FINDINGS: CHEST: Diagnostic quality: Adequate contrast bolus although distal evaluation limited by motion artifact and parenchymal opacities. Pulmonary emboli: None seen Right heart strain: None Pulmonary arteries: Normal in caliber. Heart is borderline enlarged. No pericardial effusion. Small bilateral pleural effusions. No pneumoth orax. No mediastinal or hilar lymphadenopathy by size criteria although prominent hilar lymph nodes a re likely reactive. No axillary lymphadenopathy. Bilateral groundglass and solid parenchymal airspace opacities in a perihilar and lower lung distribu tion. No definite suspicious lung nodule or mass although may be obscured by the parenchymal opacitie s. Visualized Upper abdomen: Cholecystectomy clips are seen. Bones: Degenerative changes of the spine. No aggressive osseous lesion. IMPRESSION: 1. No definite pulmonary embolus is seen although distal evaluation limited by motion artifact and d iffuse parenchymal opacities. 2. Diffuse parenchymal opacities bilaterally may represent multifocal consolidative process such as pneumonia, including atypical/viral pneumonia. Given the borderline cardiomegaly and pleural effusion s, pulmonary edema could also have this appearance. Imaging follow-up to resolution is recommended to exclude underlying mass. Electronically signed by: Jorge Das MD (12/07/2020 8:27 AM) [facility]
[2020-12-07] MEDS ORDERED: cefTRIAXone SODIUM 1 GM VIAL ONE (08:59)
[2020-12-07] MEDS ORDERED: IV NORMAL SALINE 50ML 50 ML ONE (08:59)
[2020-12-07] MEDS ORDERED: AZITHROMYCIN 500 MG VIAL. IV ONE (08:59)
[2020-12-07] MEDS ORDERED: IV NORMAL SALINE 250ML 250 ML ONE (08:59)
[2020-12-07] MEDS ORDERED: IPRATRPIUM/ALBUTEROL 0.5/2.5MG 3 ML NEBU. NEB ONE (09:00)
[2020-12-07] MEDS ORDERED: FUROSEMIDE 40 MG/4 ML VIAL IVP ONE (09:00)
[2020-12-07] MEDS ORDERED: methylPREDNISolone SOD SUCC PF 40 MG/ML VIAL. IV ONE (09:00)
[2020-12-07] MEDS ORDERED: AZITHROMYCIN 500 MG in IV NORMAL SALINE 250ML 250 ML IV ONE (09:00)
[2020-12-07] MEDS ORDERED: NITROGLYCERIN SUBLINGUAL 0.4 MG BOTTLE OF 25. SL PRN ×2 (09:00→22:30)
[2020-12-07] MEDS ORDERED: ACETAMINOPHEN 325 MG TABLET PO PRN (09:00)
--- NOTE | 2020-12-07 10:17 | EKG ---
[address] [address] Test Date: 2020-12-07 Test Time: 07:03:27 Pat Name: NAOMI VASQUEZ Department: Room: Gender: F Bi Lead: JOSE : 1940 Requested By: LIONEL TORRES Order Number: [id number] Reading MD: Measurements Intervals Wing Rate: 75 P: 54 DC: 156 QRS: 10 QRSD: 160 T: 82 QT: 418 QTc: 470 Interpretive Statements SINUS RHYTHM NON SPECIFIC INTRAVENTRICULAR BLOCK ABNORMAL ECG RI6.02 No previous ECG available for comparison
[2020-12-07] MEDS: IPRATRPIUM/ALBUTEROL 0.5/2.5MG 3 ML NEBU. NEB SCH ×3 (13:02→20:00)
[2020-12-07] MEDS ORDERED: ALPRAZolam 0.25 MG TABLET PO ONE (14:45)
[2020-12-07] MEDS ORDERED: LISINOPRIL 10 MG TABLET PO SCH (15:15)
[2020-12-07] MEDS ORDERED: amLODIPine BESYLATE 5 MG TABLET PO SCH (15:15)
[2020-12-07] MEDS ORDERED: FENOFIBRATE NANOCRYSTALLIZED 145 MG TABLET PO ONE (15:30)
[2020-12-07] MEDS ORDERED: EZETIMIBE 10 MG TABLET PO ONE (15:30)
[2020-12-07] MEDS ORDERED: LEVOTHYROXINE 100 MCG TABLET PO ONE (15:30)
[2020-12-07] MEDS ORDERED: buPROPion XL 150 MG TAB.ER.24H PO ONE (15:30)
[2020-12-07] MEDS ORDERED: amLODIPine BESYLATE 5 MG TABLET PO ONE (15:30)
[2020-12-07] MEDS ORDERED: buPROPion XL 300 MG TAB.ER.24H. PO ONE (15:30)
[2020-12-07] MEDS ORDERED: LISINOPRIL 10 MG TABLET PO ONE (15:30)
[2020-12-07] MEDS ORDERED: CHLORTHALIDONE 25 MG TABLET PO ONE (15:30)
[2020-12-07] MEDS ORDERED: PANTOPRAZOLE 40 MG TABLET. PO ONE (16:43)
[2020-12-07 19:48] VITALS: BP 149/71
[2020-12-07] MEDS ORDERED: OMEP20CA16 PO (22:05)
[2020-12-07] MEDS ORDERED: FENO160T PO (22:05)
[2020-12-07] MEDS ORDERED: LEVO100T5 PO (22:05)
[2020-12-07] MEDS ORDERED: DOCUSATE SODIUM 100 MG CAPSULE PO PRN (22:30)
[2020-12-07] MEDS ORDERED: levoFLOXacin PER PHARMACY 1 EACH. MC PRN (22:30)
[2020-12-07] MEDS: ASPIRIN ENTERIC COATED 81 MG TABLET.DR. PO SCH (23:15)
[2020-12-07] MEDS: ATORVASTATIN CALCIUM 20 MG TABLET PO SCH (23:15)
[2020-12-07] MEDS: ALPRAZolam 0.5 MG TABLET PO SCH (23:15)
[2020-12-07 23:30] VITALS: BP 134/65
[2020-12-08] MEDS: LEVOTHYROXINE 100 MCG TABLET PO SCH (05:48)
[2020-12-08 05:49] VITALS: BP 148/69
[2020-12-08] MEDS ORDERED: PANTOPRAZOLE 40 MG TABLET. PO SCH (07:30)
[2020-12-08] MEDS: amLODIPine BESYLATE 5 MG TABLET PO SCH (08:00)
[2020-12-08] MEDS: buPROPion XL 150 MG TAB.ER.24H PO SCH (08:00)
[2020-12-08] MEDS: FENOFIBRATE NANOCRYSTALLIZED 145 MG TABLET PO SCH (08:00)
[2020-12-08] MEDS: IPRATRPIUM/ALBUTEROL 0.5/2.5MG 3 ML NEBU. NEB SCH (08:00)
[2020-12-08] MEDS: ALPRAZolam 0.5 MG TABLET PO SCH ×2 (08:01→21:05)
[2020-12-08] MEDS: CHLORTHALIDONE 25 MG TABLET PO SCH (08:01)
[2020-12-08] MEDS: EZETIMIBE 10 MG TABLET PO SCH (08:01)
[2020-12-08] MEDS: LISINOPRIL 10 MG TABLET PO SCH (08:02)
[2020-12-08] MEDS: buPROPion XL 300 MG TAB.ER.24H. PO SCH (08:02)
[2020-12-08] MEDS: PANTOPRAZOLE 40 MG TABLET. PO SCH (08:02)
[2020-12-08] MEDS ORDERED: CHLORTHALIDONE 25 MG TABLET PO SCH (09:00)
[2020-12-08] MEDS ORDERED: buPROPion XL 150 MG TAB.ER.24H PO SCH ×2 (09:00)
[2020-12-08] MEDS ORDERED: FENOFIBRATE NANOCRYSTALLIZED 145 MG TABLET PO SCH (09:00)
[2020-12-08] MEDS ORDERED: EZETIMIBE 10 MG TABLET PO SCH (09:00)
[2020-12-08] MEDS ORDERED: buPROPion XL 300 MG TAB.ER.24H. PO SCH ×2 (09:00)
[2020-12-08] MEDS: NON FORMULARY ITEM (Vortioxetine Hydrobromide (Trintellix) 20 MG) PO SCH (09:00)
[2020-12-08 10:57] VITALS: BP 145/66
[2020-12-08] MEDS: ENOXAPARIN 40 MG/0.4 ML SYRINGE. SQ SCH (14:37)
--- NOTE | 2020-12-08 14:52 | HP ---
HISTORY OF PRESENT ILLNESS: This is a 80-year-old female who for the last week or so has been feeling ill with decreased to take a deep breath. She became increasingly short of breath. The patient was treated as an outpatient with 2 varieties of antibiotics. Continued to make no progress. The patient's CTA showed consolidation of her lung. Since she has failed oral antibiotics, she was admitted for IV antibiotic therapy and further evaluation of her overall situation. She notes that regular inhalers and prednisone have not helped her and consequently was admitted for her pneumonia and respiratory distress. PAST MEDICAL HISTORY: Tonsillectomy, cardiomyopathy, coronary artery disease, GERD, hysterectomy, right hip replacement, degenerative arthritis, hypothyroidism, depression. IMMUNIZATIONS: Tetanus, influenza and pneumococcal up to date. PAST SURGICAL HISTORY: Cholecystectomy. FAMILY HISTORY: Father had high blood pressure, . Brother, mental retardation. Heart attack in the father. Mother, arrhythmias and COPD. ALLERGIES: EPINEPHRINE. SOCIAL HISTORY: No smoking, alcohol or drug use noted. MEDICATIONS: Zetia 10 mg, fenofibrate 160, Lipitor 40, nitroglycerin, amlodipine/benazepril 5/10, 81 aspirin, 150 and 300 XL, Trintellix, Xanax, chlorthalidone 25, docusate sodium, Prilosec 20, levothyroxine 100 mcg. REVIEW OF SYSTEMS: The patient denies any headaches, visual change, blurred vision, double vision. Does have shortness of breath, generalized weakness, dyspnea. No chest pain. Denies any nausea, vomiting, melena, hematochezia or hematemesis, and neurologically is stable there. PHYSICAL EXAMINATION: GENERAL: This is a very pleasant white female, in moderate amount of distress. VITAL SIGNS: Blood pressure 146/70, respiratory 18, pulse 70. She is presently afebrile, 2 liters at 96. HEENT: The patient's head was atraumatic, normocephalic. Eyes: PERRLA without jaundice. The mouth and throat were normal. NECK: Supple, without JVD or thyromegaly. LUNGS: Diminished, poor movement of air, primarily in the right lower lung base. CARDIOVASCULAR: Regular sinus rhythm, S1, S2. ABDOMEN: Soft, nontender. No rebound or guarding. Positive bowel sounds. No hepatosplenomegaly noted. EXTREMITIES: No clubbing, cyanosis or edema. NEUROLOGIC: Intact. LABORATORY DATA: The patient's white count is 13, hemoglobin 10 and hematocrit 38. Sodium and potassium are 145 and 4.1. BUN 23 and creatinine 1.1. BNP 3000. Cardiac enzymes negative. IMPRESSION: Pneumonia, community acquired. The patient unresponsive to outpatient therapy; therefore, was admitted for IV antibiotic therapy. JEAN CLAUDE/BERNADINE DR: Nile TID: [id number]
[2020-12-08 15:17] VITALS: BP 133/64
[2020-12-08 20:43] VITALS: BP 156/70
[2020-12-08] MEDS: ATORVASTATIN CALCIUM 20 MG TABLET PO SCH (21:05)
[2020-12-08] MEDS: ASPIRIN ENTERIC COATED 81 MG TABLET.DR. PO SCH (21:05)
[2020-12-09 00:06] VITALS: BP 161/74
[2020-12-09] MEDS: LEVOTHYROXINE 100 MCG TABLET PO SCH (06:11)
[2020-12-09 06:26] VITALS: BP 161/75
[2020-12-09] MEDS: CHLORTHALIDONE 25 MG TABLET PO SCH (09:00)
[2020-12-09] MEDS: NON FORMULARY ITEM (Vortioxetine Hydrobromide (Trintellix) 20 MG) PO SCH (09:00)
[2020-12-09] MEDS: buPROPion XL 300 MG TAB.ER.24H. PO SCH (09:19)
[2020-12-09] MEDS: ALPRAZolam 0.5 MG TABLET PO SCH ×2 (09:20→21:48)
[2020-12-09] MEDS: EZETIMIBE 10 MG TABLET PO SCH (09:20)
[2020-12-09] MEDS: PANTOPRAZOLE 40 MG TABLET. PO SCH (09:20)
[2020-12-09] MEDS: LISINOPRIL 10 MG TABLET PO SCH (09:20)
[2020-12-09] MEDS: FENOFIBRATE NANOCRYSTALLIZED 145 MG TABLET PO SCH (09:20)
[2020-12-09] MEDS: buPROPion XL 150 MG TAB.ER.24H PO SCH (09:20)
[2020-12-09] MEDS: amLODIPine BESYLATE 5 MG TABLET PO SCH (09:23)
[2020-12-09 10:51] VITALS: BP 148/63
[2020-12-09] MEDS ORDERED: NALOXONE 0.4 MG/ML VIAL. IV ONE (12:00)
[2020-12-09 14:25] VITALS: BP 150/76
[2020-12-09] MEDS: ENOXAPARIN 40 MG/0.4 ML SYRINGE. SQ SCH (14:55)
[2020-12-09] MEDS: LACTOBACILLUS RHAMNOSUS GG 1 CAPSULE. PO SCH (21:48)
[2020-12-09] MEDS: ATORVASTATIN CALCIUM 20 MG TABLET PO SCH (21:48)
[2020-12-09] MEDS: ASPIRIN ENTERIC COATED 81 MG TABLET.DR. PO SCH (21:48)
[2020-12-09 23:09] VITALS: BP 146/79
[2020-12-10] MEDS: LEVOTHYROXINE 100 MCG TABLET PO SCH (06:07)
[2020-12-10 06:37] VITALS: BP 157/71
[2020-12-10] MEDS: NON FORMULARY ITEM (Vortioxetine Hydrobromide (Trintellix) 20 MG) PO SCH (09:00)
[2020-12-10] MEDS: CHLORTHALIDONE 25 MG TABLET PO SCH (09:00)
[2020-12-10] MEDS: EZETIMIBE 10 MG TABLET PO SCH (09:24)
[2020-12-10] MEDS: buPROPion XL 300 MG TAB.ER.24H. PO SCH (09:24)
[2020-12-10] MEDS: ALPRAZolam 0.5 MG TABLET PO SCH (09:24)
[2020-12-10] MEDS: LACTOBACILLUS RHAMNOSUS GG 1 CAPSULE. PO SCH (09:24)
[2020-12-10] MEDS: FENOFIBRATE NANOCRYSTALLIZED 145 MG TABLET PO SCH (09:24)
[2020-12-10] MEDS: buPROPion XL 150 MG TAB.ER.24H PO SCH (09:24)
[2020-12-10] MEDS: LISINOPRIL 10 MG TABLET PO SCH (09:25)
[2020-12-10] MEDS: PANTOPRAZOLE 40 MG TABLET. PO SCH (09:25)
[2020-12-10] MEDS: amLODIPine BESYLATE 5 MG TABLET PO SCH (09:25)
[2020-12-10] MEDS ORDERED: DOXY200T2 PO (09:35)
[2020-12-10 10:50] VITALS: BP 139/57
--- NOTE | 2020-12-10 15:02 | PN ---
DATE: 12/10/2020 SUBJECTIVE: A 80-year-old female who came in with acute respiratory failure, appears to be community acquired pneumonia. The patient is feeling somewhat better this morning. Oxygen still drops when she mobilizes, however, still very weak. Starting her on PT, OT for rehabilitation. OBJECTIVE: VITAL SIGNS: Blood pressure 150/76, respiratory rate 18, pulse 98.1, oxygen saturation 92 on room air at rest. GENERAL: Otherwise, alert and oriented. LUNGS: Diminished, poor movement of air, but clearer than they have been. CARDIOVASCULAR: Regular sinus rhythm. ABDOMEN: Soft, nontender. EXTREMITIES: No clubbing, cyanosis nor edema. NEUROLOGIC: Baseline with no obvious changes there. We will repeat chest x-ray in the morning. Continue her on IV antibiotic therapy for now and hopefully ready for discharge if chest x-ray shows improvement and the patient shows improvement as well. IMPRESSION: Pneumonia, community acquired, acute respiratory failure. PLAN: As above. SONAL/JAMISON/EMMANUEL DR: Nile TID: [id number]
== END 2020-12-10 14:18 | disposition home or self-care (01) | DRG 177 ==
LOC: ER 06:35 → 1 SOUTH 08:47
PROVIDERS: ADMIT Family Medicine; ATTEND Family Medicine
DX: J15.6 Pneumonia due to other Gram-negative bacteria (principal); J96.01 Acute respiratory failure with hypoxia; I42.9 Cardiomyopathy, unspecified; J44.0 Chronic obstructive pulmonary disease with (acute) lower respiratory infection; J15.9 Unspecified bacterial pneumonia; E03.9 Hypothyroidism, unspecified; I25.10 Atherosclerotic heart disease of native coronary artery without angina pectoris; I50.9 Heart failure, unspecified; Z96.641 Presence of right artificial hip joint; F32.9 Major depressive disorder, single episode, unspecified; F41.9 Anxiety disorder, unspecified; K21.9 Gastro-esophageal reflux disease without esophagitis; M19.90 Unspecified osteoarthritis, unspecified site; Z88.6 Allergy status to analgesic agent; Z81.0 Family history of intellectual disabilities; Z82.49 Family history of ischemic heart disease and other diseases of the circulatory system; Z82.5 Family history of asthma and other chronic lower respiratory diseases; Z90.710 Acquired absence of both cervix and uterus; Z20.822 Contact with and (suspected) exposure to COVID-19
CPT/HCPCS: 36415; 71275; 80048; 83880; 84484; 85025; 87426; 93005; 94640; 96365; 96367; 96375; J0456; J0696; J1650; J1940; J1956; J2920; J7050; Q9967; U0003; 97530; 99291-25

== ENCOUNTER → 2020-12-23 | Outpatient (CLI) | payer MEDICARE, BC ==
[2020-12-10 10:50] VITALS: BP 139/57
[~2020-12-23] MED LIST changes: +ALBU2.5V8 INH; +BUDE10.2 IH; +DOXY200T2 PO; +FENO160T PO; +LEVO100T5 PO; +OMEP20CA16 PO
--- NOTE | 2020-12-23 15:09 | RAD ---
INDICATION: Reason: ABNORMAL WEIGHT LOSS / Spl. Instructions: / History: COMPARISON: None. TECHNIQUE: Axial CT images were obtained through the abdomen and pelvis without intravenous contrast. One or more of the following individualized dose reduction techniques were utilized for this examinat ion: 1. Automated exposure control; 2. Adjustment of the mA and/or kV according to patient size; 3 . Use of iterative reconstruction technique. FINDINGS: There is some hyperinflation at the lung bases. Groundglass opacities at right lung base. Vascular: Scattered calcific atherosclerosis. Hepatobiliary: Postcholecystectomy changes. No intrahepatic bile duct dilation. Duodenal diverticulum. Pancreas: There is prominence of the wall of the duodenum with some haziness to the adjacent fat abut ting the duodenum and uncinate process of the pancreas. Spleen: Spleen unremarkable. Renal: No hydronephrosis. Suspected cyst at right kidney. Bladder: Minimal urine within Gastrointestinal: Colonic diverticulosis. No periappendiceal inflammatory changes. There is a couple of mildly prominent loops of small bowel in the upper abdomen measuring up to about 28 mm with more d istal decompression. No high-grade transition point to suggest obstruction. Right hip arthroplasty. Sclerotic lesion at the right side of the sacrum measuring up to about 12 mm. Degenerative changes of the left hip. Degenerative changes of the spine. There is hypertrophic changes as well as sclerosis and cyst formation at the posterior elements involving spinous process of L4-5 and L3-4. Multilevel c entral canal and neural foraminal stenosis including at L4-5 where there is at least moderate trefoil narrowing of the central canal from a combination of disc protrusion as well as facet and ligamentum flavum hypertrophy. Additional disc protrusions are identified at L3-4 and L5-S1. IMPRESSION: * There is an air and fluid-filled structure abutting the duodenum which is commonly secondary to d uodenal diverticulum. * There is also some haziness the fat adjacent to portion of duodenum and uncinate process of the pa ncreas. Would correlate with symptoms and lab markers since causes such as duodenitis, duodenal ulcer or duodenal wall mass cannot be excluded given this finding. Additionally a process involving the pa ncreas such is pancreatitis is not excluded given this haziness in the region. * Limited assessment of solid organs and vasculature secondary to lack of contrast. * Colonic diverticulosis. * Degenerative changes throughout the spine with multilevel central canal and neural foraminal steno sis. * There is some sclerosis and irregularity at spinous processes at lower lumbar spine. Would correla te with symptoms in the region since causes such as baastrup disease could have this appearance. * Patchy groundglass opacities at the right lung base which may be some residual inflammation from t he process that was involving the patient's lungs on prior. This appears decreased. Electronically signed by: Sudarshan Miller MD (12/23/2020 3:07 PM) [id number]
== END ==
LOC: CT 13:42
PROVIDERS: ATTEND Family Medicine
DX: K57.30 Diverticulosis of large intestine without perforation or abscess without bleeding (principal); K57.10 Diverticulosis of small intestine without perforation or abscess without bleeding
CPT/HCPCS: 74176

== ENCOUNTER 2020-12-24 00:18 | Emergency (ER) | payer MEDICARE, BC ==
[~2020-12-24] VITALS: Ht 165.1 cm; Wt 65.1 kg
[~2020-12-24 00:18] MED LIST changes: -ALBU2.5V8 INH; -BUDE10.2 IH
--- NOTE | 2020-12-24 00:49 | PHYS DOC ---
Past History Past Medical History: Anxiety, Arthritis, CAD, CHF Additional Past Medical Histor: cardiomyopathy,leaky mitral valve,LBBB,blocked arteries Past Surgical History: Cholecystectomy, Hip Replacement, Hysterectomy, Tonsillectomy, Other Alcohol Use: None Drug Use: None General Adult EDM: Chief Complaint: GI PROBLEM HPI: HPI: 80-year-old female presents with concern for indigestion. The patient has been taking 200 mg of doxycycline twice a day for 12 days after being in the hospital for bacterial pneumonia. She comes in tonight because she has a feeling of heartburn/indigestion and she cannot seem to make it better. She does not believe that is her heart but wanted to make sure. She denies shortness of breath or diaphoresis. She has had decreased exercise tolerance since getting pneumonia. She denies fever or chills. She has been compliant with her medications as prescribed. Review of Systems: Review of Systems: Constitutional: Denies fever or chills Eyes: Denies change in visual acuity HENT: Denies nasal congestion or sore throat Respiratory: Denies cough or shortness of breath Cardiovascular: Chest pain GI: Epigastric abdominal pain, nausea. Denies vomiting, bloody stools or diarrhea : Denies dysuria Musculoskeletal: Denies back pain or joint pain Integument: Denies rash Neurologic: Denies headache, focal weakness or sensory changes Endocrine: Denies polyuria or polydipsia Lymphatic: Denies swollen glands Psychiatric: Denies depression or anxiety Allergies: Allergies: Allergies Coded Allergies Type Severity Reaction Last Updated Verified epinephrine Allergy Intermediate 12/07/20 Yes Physical Exam: PE: Constitutional: Well developed, well nourished, no acute distress, non-toxic appearance. [] HENT: Normocephalic, atraumatic, bilateral external ears normal, oropharynx moist, no oral exudates, nose normal. [] Eyes: PERRLA, EOMI, conjunctiva normal, no discharge. [] Neck: Normal range of motion, no tenderness, supple, no stridor. [] Cardiovascular: Heart rate regular rhythm, no murmur [] Lungs & Thorax: Bilateral breath sounds clear to auscultation [] Abdomen: Bowel sounds normal, soft, no tenderness, no masses, no pulsatile masses. [] Skin: Warm, dry, no erythema, no rash. [] Back: No tenderness, no CVA tenderness. [] Extremities: No tenderness, no cyanosis, no clubbing, ROM intact, no edema. [] Neurologic: Alert and oriented X 3, normal motor function, normal sensory function, no focal deficits noted. [] Psychologic: Affect normal, judgement normal, mood normal. [] EKG: EKG: Sinus rhythm, rate 73, leftward axis, left bundle branch block, no ST elevation or depression. [] Radiology/Procedures: Radiology/Procedures: [] Impressions: EXAMINATION: Chest radiograph. VIEWS: Single AP view of the chest COMPARISON: CT chest 12/07/2020 INDICATION:80 years, Female, chest pain. FINDINGS: Normal cardiomediastinal silhouette. No focal consolidation. No pleural effusion or pneumothorax. No acute osseous process. IMPRESSION: No acute cardiopulmonary process. Electronically signed by: Heriberto Quezada DO (12/24/2020 5:49 AM) [facility] DICTATED AND SIGNED BY: HERIBERTO QUEZADA DO DATE: 12/24/20 0549 CC: DRE LOUISE DO; ALAINA MASCORRO MD ~MTH0 0 Heart Score: C/O Chest Pain: Yes HEART Score for Chest Pain: HEART Score for Chest Pain Response (Comments) Value History Slighlty/Non-Suspicious 0 ECG Nonspecific Repolarizatio 1 Age > 65 2 Risk Factors 1 or 2 Risk Factors 1 Troponin < Normal Limit 0 Total 4 Risk Factors: Risk Factors: DM, Current or recent (<one month) smoker, HTN, HLP, family history of CAD, obesity. Risk Scores: Score 0 - 3: 2.5% MACE over next 6 weeks - Discharge Home Score 4 - 6: 20.3% MACE over next 6 weeks - Admit for Clinical Observation Score 7 - 10: 72.7% MACE over next 6 weeks - Early Invasive Strategies Course & Med Decision Making: Course & Med Decision Making Pertinent Labs and Imaging studies reviewed. (See chart for details) The patient's EKG was negative for acute findings. Her labs were essentially unremarkable except for slight white count. Her chest x-ray is negative for acute findings. Her troponin is negative. I gave the patient 20 mg of Pepcid IV and 40 mg of Protonix IV. She states that she is feeling much better at this time. I explained all of her results and she was greatly reassured. She is stable for discharge at this time. [] Dragon Disclaimer: Dragon Disclaimer: This electronic medical record was generated, in whole or in part, using a voice recognition dictation system. Departure Departure: Impression: Primary Impression: GERD (gastroesophageal reflux disease) Qualified Codes: K21.9 - Gastro-esophageal reflux disease without esophagitis Disposition: HOME / SELF CARE / HOMELESS Condition: STABLE Referrals: ALAINA MASCORRO MD (PCP) DRE LOUISE DO Dec 24, 2020 00:49
[2020-12-24] MEDS ORDERED: ALBU2.5V8 INH (00:59)
[2020-12-24] MEDS ORDERED: BUDE10.2 IH (00:59)
[2020-12-24] MEDS ORDERED: PANTOPRAZOLE IV 40 MG VIAL. IVP ONE (01:00)
[2020-12-24] MEDS ORDERED: FAMOTIDINE 20 MG/2 ML VIAL IVP ONE (01:00)
[2020-12-24 03:00] VITALS: BP 138/74
--- NOTE | 2020-12-24 05:52 | RAD ---
EXAMINATION: Chest radiograph. VIEWS: Single AP view of the chest COMPARISON: CT chest 12/07/2020 INDICATION:80 years, Female, chest pain. FINDINGS: Normal cardiomediastinal silhouette. No focal consolidation. No pleural effusion or pneumothorax. No acute osseous process. IMPRESSION: No acute cardiopulmonary process. Electronically signed by: Heriberto Boggs DO (12/24/2020 5:49 AM) [facility]
[2020-12-24 06:03] LABS: ALBUMIN 3.4 g/dL (3.4-5.0); ALBUMIN/GLOBULIN RATIO 1.1 (1.0-1.7); BASO # 0.1 x10^3/uL (0.0-0.2); BASO % 1 % (0-3); CALCIUM 10.3 mg/dL (8.5-10.1); CREATININE 1.1 mg/dL (0.6-1.0); EOS # 0.1 x10^3/uL (0.0-0.7); EOS % 1 % (0-3); HEMOGLOBIN 12.7 g/dL (12.0-15.5); LYMPH # 4.5 x10^3/uL (1.0-4.8); LYMPH % 32 % (24-48); MEAN CORPUSCULAR HEMOGLOBIN 27 pg (25-35); MEAN CORPUSCULAR HGB CONC 33 g/dL (31-37); MEAN CORPUSCULAR VOLUME 83 fL (79-100); MONO # 1.1 x10^3/uL (0.0-1.1); MONO % 8 % (0-9); NEUT % 58 % (31-73); PLATELET COUNT 424 x10^3/uL (140-400); POTASSIUM 3.3 mmol/L (3.5-5.1); RED BLOOD COUNT 4.72 x10^6/uL (3.50-5.40); RED CELL DISTRIBUTION WIDTH 14.5 % (11.5-14.5); TOTAL BILIRUBIN 0.7 mg/dL (0.2-1.0); TOTAL PROTEIN 6.4 g/dL (6.4-8.2); WHITE BLOOD COUNT 13.7 x10^3/uL (4.0-11.0)
--- NOTE | 2020-12-24 13:13 | EKG ---
[address] [address] Test Date: 2020-12-24 Test Time: 00:55:25 Pat Name: NAOMI VASQUEZ Department: Room: Gender: F Deputy Court: AXEL : 1940 Requested By: RDE LOUISE Order Number: [id number] Reading MD: Measurements Intervals [place] Rate: 73 P: 239 TN: 114 QRS: -6 QRSD: 164 T: 70 QT: 430 QTc: 478 Interpretive Statements SINUS RHYTHM LEFTWARD AXIS LEFT BUNDLE BRANCH BLOCK ABNORMAL ECG RI6.02 No previous ECG available for comparison
== END 2020-12-24 03:15 | disposition home or self-care (01) ==
LOC: ER 00:18
DX: K21.9 Gastro-esophageal reflux disease without esophagitis (principal); Z90.49 Acquired absence of other specified parts of digestive tract; Z90.710 Acquired absence of both cervix and uterus
CPT/HCPCS: 36415; 71045; 80053; 83690; 84484; 85025; 93005; 96374; 96375; 99285; C9113; J3490

== ENCOUNTER → 2021-03-19 | Outpatient (CLI) | payer MEDICARE, BC ==
[~2021-03-19] MED LIST changes: +ALBU2.5V8 INH; +BUDE10.2 IH; +MV-M1CAP18 PO
== END ==
LOC: LAB 11:37
PROVIDERS: ATTEND Internal Medicine Gastroenterology
DX: Z01.812 Encounter for preprocedural laboratory examination (principal); Z20.822 Contact with and (suspected) exposure to COVID-19; R93.89 Abnormal findings on diagnostic imaging of other specified body structures
CPT/HCPCS: U0003

== ENCOUNTER → 2021-03-23 | Day surgery (SDC) | payer MEDICARE, BC ==
[~2021-03-23] MED LIST changes: +LIDOCAINE 2% PF 5 ML VIAL. ONE; +PROPOFOL 10,000 MCG/ML (20ML) VIAL IV ONE
[2021-03-23 10:41] VITALS: BP 125/57
== END | disposition home or self-care (01) ==
LOC: SURG 08:32
PROVIDERS: ATTEND Internal Medicine Gastroenterology
DX: R93.3 Abnormal findings on diagnostic imaging of other parts of digestive tract (principal); K44.9 Diaphragmatic hernia without obstruction or gangrene; K31.7 Polyp of stomach and duodenum; K57.10 Diverticulosis of small intestine without perforation or abscess without bleeding; K22.2 Esophageal obstruction; K31.89 Other diseases of stomach and duodenum; K21.9 Gastro-esophageal reflux disease without esophagitis; I10 Essential (primary) hypertension; E78.00 Pure hypercholesterolemia, unspecified; I25.10 Atherosclerotic heart disease of native coronary artery without angina pectoris; E03.9 Hypothyroidism, unspecified; F32.9 Major depressive disorder, single episode, unspecified; Z90.710 Acquired absence of both cervix and uterus; Z98.890 Other specified postprocedural states; Z79.899 Other long term (current) drug therapy; Z79.82 Long term (current) use of aspirin; Z88.1 Allergy status to other antibiotic agents; Z88.8 Allergy status to other drugs, medicaments and biological substances; Z82.49 Family history of ischemic heart disease and other diseases of the circulatory system
CPT/HCPCS: 43239; J2001; J2704

== ENCOUNTER → 2021-08-26 | Outpatient (CLI) | payer MEDICARE, BC ==
[2021-03-23 10:41] VITALS: BP 125/57
[~2021-08-26] MED LIST changes: -LIDOCAINE 2% PF 5 ML VIAL. ONE; -PROPOFOL 10,000 MCG/ML (20ML) VIAL IV ONE
--- NOTE | 2021-08-26 13:59 | RAD ---
EXAMINATION: XR HIP (WITH OR WITHOUT PELVIS)LEFT 1 VIEW. HISTORY: 81 years Female left hemiarthroplasty COMPARISON: July 17, 2021. FINDINGS: Bilateral hip replacement is seen. There are augmentation screws noted on the right side acetabular c omponent. The prosthesis is well-seated bilaterally. No acute fractures. The SI joints demonstrate mi ld degenerative changes. Sclerotic focus measuring 1.3 cm is seen projecting over the right sacrum co uld represent a bone island. IMPRESSION: 1. Bilateral hip arthroplasty in good position. 2. A 1.3 cm sclerotic lesion in the right sacrum ala stable from CT scan of December 2020 nonspecifi c, but could represent a bone island. Electronically signed by: Zion Morales MD (08/26/2021 1:57 PM) [id number]
== END ==
LOC: RAD 13:37
PROVIDERS: ATTEND Physician Assistant
DX: M46.1 Sacroiliitis, not elsewhere classified (principal); M89.8X8 Other specified disorders of bone, other site; Z96.643 Presence of artificial hip joint, bilateral
CPT/HCPCS: 73501